=== PATIENT | male | born 1995 | race Two or more races ===

== ENCOUNTER → 2020-04-09 | Emergency (ER) | payer MEDICAID, OTHER ==
[~2020-04-09] VITALS: Ht 172.7 cm; Wt 61.2 kg
[2020-04-10 02:11] VITALS: BP 137/90
== END | disposition home or self-care (01) ==
LOC: ER 23:04
DX: F41.0 Panic disorder [episodic paroxysmal anxiety] (principal)
CPT/HCPCS: 71046